=== PATIENT | female | born 1955 | race Caucasian/White ===

== ENCOUNTER → 2016-10-07 | Outpatient (CLI) | payer BC ==
[~2016-10-07] MED LIST: AMLO-110 PO; CALC600T9 PO; CHOL1000 PO; LOSA1TAB PO; OMEG10007 PO; OMEP40CA PO
--- NOTE | 2016-10-07 13:58 | MAMMOGRAPHY REPORT ---
BILATERAL DIGITAL SCREENING MAMMOGRAM TOMOSYNTHESIS WITH CAD: 10/07/2016 CLINICAL HISTORY: Routine screening. Patient has no complaints. TECHNIQUE: Breast tomosynthesis in addition to standard 2D mammography was performed. Current study was also evaluated with a Computer Aided Detection (CAD) system. COMPARISON: Comparison is made to exams dated: 10/05/2015 mammogram, 10/02/2013 mammogram, 10/15/2014 m ammogram, 10/07/2014 mammogram, 10/03/2014 mammogram, and 09/26/2011 mammogram - [facility]. BREAST COMPOSITION: The tissue of both breasts is heterogeneously dense, which may obscure small ma sses. FINDINGS: No suspicious masses, calcifications, or areas of architectural distortion are noted in e ither breast. There has been no significant interval change compared to prior exams. There is stabl e architectural distortion within the right medial breast, likely representing post surgical changes from prior lumpectomy. Bilateral benign-appearing calcifications are not significantly changed. IMPRESSION: ACR BI-RADS CATEGORY 2: BENIGN There is no mammographic evidence of malignancy. A 1 year screening mammogram is recommended. The p atient will receive written notification of the results. Approximately 10% of breast cancers are not detected with mammography. A negative mammographic repor t should not delay biopsy if a clinically suggestive mass is present. Kelli Knight M.D. /:10/07/2016 13:29:06 Odd Shoe Examiner: Molly DERAS)(M), [facility] letter sent: Normal 1/2 BI-RADS Code: ACR BI-RADS Category 2: Benign
== END | disposition home or self-care (01) ==
LOC: C.MAMM 09:51
PROVIDERS: ATTEND Obstetrics & Gynecology
DX: Z12.31 Encounter for screening mammogram for malignant neoplasm of breast (principal); Z08 Encounter for follow-up examination after completed treatment for malignant neoplasm; Z85.3 Personal history of malignant neoplasm of breast

== ENCOUNTER → 2017-10-10 | Outpatient (CLI) | payer OTHER ==
--- NOTE | 2017-10-11 15:53 | MAMMOGRAPHY REPORT ---
BILATERAL DIGITAL SCREENING MAMMOGRAM TOMOSYNTHESIS WITH CAD: 10/10/2017 CLINICAL HISTORY: Asymptomatic. Personal history of right breast cancer. Fibroadenoma excision from the left breast. TECHNIQUE: Breast tomosynthesis in addition to standard 2D mammography was performed. Current study was also evaluated with a Computer Aided Detection (CAD) system. COMPARISON: Comparison is made to exams dated: 10/07/2016 mammogram, 10/05/2015 mammogram, 10/07/2014 m ammogram, 10/03/2014 mammogram, 10/02/2013 mammogram, and 10/01/2012 mammogram - [facility]. BREAST COMPOSITION: The tissue of both breasts is heterogeneously dense, which may obscure small mas ses. FINDINGS: Linear scar markers overlie each breast. The right scar marker overlies the upper outer p osterior breast, and the left scar marker overlies the lower outer middle to anterior breast. There is no obvious architectural distortion in the left breast in the area of prior fibroadenoma excision in the 5:00 axis. There are stable groupings of punctate macro calcifications in the superior left b reast. No new suspicious masses, suspicious calcifications, asymmetries or areas of architectural di stortion are seen in the left breast. There is a focal area of architectural distortion in the lower inner quadrant of the right breast. T here is no overlying scar marker to definitively denoting the lumpectomy bed and based on prior avail able records, review of mammogram reports dating back to 1997 do not describe the location of the lum pectomy bed. Therefore, additional spot compression tomosynthesis views of the right lower inner kristen drant after placement of any additional scar markers is recommended, with possible ultrasound. There are possible grouped calcifications in the upper outer posterior right breast for which additional s pot magnification views are recommended. No other suspicious mass, architectural distortion or cluster of microcalcifications is seen. IMPRESSION: ACR BI-RADS CATEGORY 0: INCOMPLETE EVALUATION: NEED ADDITIONAL IMAGING EVALUATION 1. The focal architectural distortion in the lower inner right breast and microcalcifications in the upper outer posterior right breast need additional imaging evaluation. Please see above discussion. The patient will be called to schedule an appointment. Approximately 10% of breast cancers are not detected with mammography. A negative mammographic report should not delay biopsy if a clinically suggestive mass is present. Candace Jaquez M.D. ay/:10/10/2017 16:10:58 Petrographer: Lara Doyle RT(R)(M), [facility] letter sent: Addl Imaging 0 BI-RADS Code: ACR BI-RADS Category 0: Incomplete Evaluation: Need Additional Imaging Evaluation
== END | disposition home or self-care (01) ==
LOC: C.MAMM 10:09
PROVIDERS: ATTEND Obstetrics & Gynecology
DX: Z12.31 Encounter for screening mammogram for malignant neoplasm of breast (principal); Z85.3 Personal history of malignant neoplasm of breast; N64.89 Other specified disorders of breast; R92.0 Mammographic microcalcification found on diagnostic imaging of breast

== ENCOUNTER → 2017-10-18 | Outpatient (CLI) | payer OTHER ==
--- NOTE | 2017-10-19 08:04 | MAMMOGRAPHY REPORT ---
UNILATERAL RIGHT DIGITAL DIAGNOSTIC MAMMOGRAM TOMOSYNTHESIS AND TARGETED RIGHT ULTRASOUND: 10/18/2017 CLINICAL HISTORY: 61-year-old woman with a remote history of right breast cancer approximately 20 yea rs ago, with skin surgical scar in the upper outer quadrant near the axilla. Also recent left breast excisional biopsy performed in 2014, which yielded benign pathology results. She was called back fr om most recent screen for right breast microcalcifications in the upper outer quadrant and possible a gigi of distortion in the lower inner right breast. TECHNIQUE: Spot magnification right CC, ML and spot compression tomosynthesis right CC and MLO views were obtained. COMPARISON: Comparison is made to exams dated: 10/10/2017 mammogram, 10/07/2016 mammogram, 10/05/2015 m ammogram, 10/03/2014 mammogram, 10/02/2013 mammogram, and 10/01/2012 mammogram - [facility] C [facility]. BREAST COMPOSITION: The tissue of the right breast is heterogeneously dense, which may obscure small masses. FINDINGS: The spot magnification views of the right upper outer breast demonstrate an 11 mm grouping of coarse heterogeneous calcifications. Although these calcifications could represent a benign dege nerating fibroadenoma, given the personal history of DCIS, definitive characterization with a stereot actic guided biopsy is recommended. The spot compression tomosynthesis views of the right lower inner breast demonstrate a subtle area of architectural distortion on cc tomosynthesis slice 15/56, and likely corresponding distortion on MLO tomosynthesis slice 25/60. Further characterization with ultrasound was performed. On visual inspection, no periareolar or lower inner quadrant skin scar is noted. Throughout the righ t lower inner quadrant also including the 2:00 and 7:00 axes as well as the retroareolar breast, no s uspicious solid or cystic masses identified. No sonographic correlate for the distortion seen mammog raphically. This area remains indeterminate and definitive characterization with a stereotactic allyssa synthesis guided biopsy is recommended. IMPRESSION: ACR BI-RADS CATEGORY 4: SUSPICIOUS, TARGETED ULTRASOUND ACR BI-RADS CATEGORY 4: SUSPICIO US 1. Stereotactic guided right breast biopsy is recommended for a grouping of coarse heterogeneous lian rocalcifications in the upper outer posterior right breast. 2. Stereotactic tomosynthesis guided biopsy is also recommended for a subtle focal area of ip network architect ural distortion in the lower inner middle one third of the right breast, located distal from the marlene ent's original surgical scar from her lumpectomy performed 20 years ago. These results and recommendations were discussed with the patient and her at the time of the exam. She tentatively scheduled the biopsies prior to leaving our department. Approximately 10% of breast cancers are not detected with mammography. A negative mammographic report should not delay biopsy if a clinically suggestive mass is present. Candace Jaquez M.D. ay/:10/18/2017 15:36:44 Applied Behavior Specialist: Lara CLARK(R)(M), [facility] letter sent: Abnormal 4/5 BI-RADS Code: ACR BI-RADS Category 4: Suspicious Ultrasound BI-RADS: ACR BI-RADS Category 4: Suspici ous
== END | disposition home or self-care (01) ==
LOC: C.MAMM 14:00
PROVIDERS: ATTEND Obstetrics & Gynecology
DX: N64.89 Other specified disorders of breast (principal); R92.0 Mammographic microcalcification found on diagnostic imaging of breast; Z85.3 Personal history of malignant neoplasm of breast

== ENCOUNTER → 2017-11-02 | Outpatient (CLI) | payer OTHER ==
--- NOTE | 2017-11-02 13:35 | Discharge Instructions ---
Discharge Instructions Procedure Procedure Date: Nov 02, 2017. Reason for visit: Right Distortion; Right Calcs. Discharge Discharge Date: Nov 02, 2017. Discharge Diagnosis: status post breast biopsy Instructions Activity Recommendations: Additional Limitations (see below) Return to School/Work: no limitations Recommended Home Diet: No Limitations Provider Instructions: ACTIVITY RECOMMENDATIONS: * No lifting, pushing, pulling or exercising the affected side for three days. RETURN TO SCHOOL/WORK: * You may return to work/school after the procedure, but do not perform any strenuous activities for 24 to 48 hours. MEDICATIONS: * Tylenol (two 325 mg) every four to six hours if needed for mild pain (if not allergic to Tylenol). DIET: * Resume previous diet. SPECIAL CARE INSTRUCTIONS: * Keep biopsy site dry for 24 hours. May shower after 24 hours, but do not soak (bathe) incision. * May remove Tegaderm (plastic patch) tomorrow AFTER showering. * Leave the steri-strips on for one week. Allow the steri-strips to fall off by themselves. If not off after one week, you may remove them. You may place a Bandaid crosswise over the strips, if desired. * Apply ice 10 minutes on and 10 minutes off as needed. * Wear a bra at bedtime to sleep more comfortably for 2-3 days. * Your referring physician should have the results after approximately 5 to 7 business days. * Call for unusual bleeding, fever, drainage, etc or if you have any questions call during normal business hours or after hours call Dr Knight, [phone]. FOLLOW UP VISIT: Follow-up with Referring Physician as scheduled. Allergies Coded Allergies: No Known Allergies (Unverified , 09/09/13) Olga Hurd Recommendations: Call your doctor if: * Temperature above 101 degrees * Pain not relieved by pain medicine ordered * There is increased drainage or redness from any incision * You have any unanswered questions or concerns. Your Doctors Instructions noted above were prepared by provider Kelli Knight. Patient Signature Section: Patient Instructions Signature Page Sruthi Cuevas Patient (or Guardian) Signature/Date: I have read and understand the instructions given to me by my caregivers. Caregiver/RN/Doctor Signature/Date: The above-named patient and/or guardian has received patient instructions on this date. + Original Patient Signature Page (only) stays with chart. Please make copy for patient.
--- NOTE | 2017-11-06 12:40 | MAMMOGRAPHY REPORT ---
STEREOTACTIC GUIDED BIOPSY RIGHT BREAST: 11/02/2017 CLINICAL HISTORY: Indeterminate calcifications in the right upper outer quadrant. Focal area of arch itectural distortion seen within the right lower inner quadrant. PATIENT CONSENT: The procedure, risks, benefits, and alternatives of stereotactic biopsy with clip pl acement were discussed with the patient, and verbal and written consent was obtained. A timeout was performed immediately prior to the procedure. PROCEDURE DESCRIPTION: First, the focal area of architectural distortion in the right lower inner quadrant was going to be t argeted for biopsy. The area could not be confidently visualized on public information director images, in either the caud ocranial or medial positions, as the breast could not be pulled down far enough into the hole in the table enough to include the finding on the images. Additionally, when reviewing the diagnostic mammo grams a calcified artery is seen coursing through the distortion, and the biopsy would likely not be able to be safely performed even if it was visualized due to the risk of injury to the artery and pos sible bleeding. Therefore, biopsy was not performed of the focal area of architectural distortion. With stereotactic guidance, aseptic technique, and lidocaine as a local anesthetic (1% lidocaine to a nesthetize the skin and 1% lidocaine with epinephrine to anesthetize the deeper tissues), the calcifi cations of concern in the right upper outer quadrant were sampled multiple times with a 9-gauge vacuu m-assisted biopsy needle (newMentor). The path of approach was lateral, with he placed down into t her arm hole in the table to obtain more posterior tissue. The specimen radiograph demonstrates calc ifications to be present in the samples. A metallic marker clip was placed at the biopsy site. This was confirmed on postprocedure mammograms. Direct pressure was applied at the biopsy site and hemos tasis was readily achieved. The patient tolerated the procedure without complication. She was given wound care instructions. COMPARISON: Comparison is made to exams dated: 10/18/2017 mammogram, 10/10/2017 mammogram, 10/07/2016 ma mmogram, 10/05/2015 mammogram, 10/07/2014 mammogram, and 10/03/2014 mammogram - [facility]ter. IMPRESSION: STEREOTACTIC GUIDED BIOPSY 1. Status post stereotactic biopsy of right upper outer quadrant calcifications, with clip placement . The patient will receive pathology results from her referring provider. 2. Stereotactic biopsy could not be performed of the focal area of architectural distortion in the r ight lower inner quadrant, as described above. The focal area of architectural distortion most likel y represents a radial scar although remains indeterminant. As stereotactic biopsy could not be perfo rmed, needle localization and surgical biopsy is recommended. Kelli Knight M.D. ah/:11/02/2017 15:13:59 Attending Technologist: Miguel A CLARK(R)(M), [facility] Youth Leader: Molly Cummins, [facility]
--- NOTE | 2017-11-06 12:44 | MAMMOGRAPHY REPORT ---
UNILATERAL RIGHT DIGITAL DIAGNOSTIC MAMMOGRAM: 11/02/2017 CLINICAL HISTORY: Status post right breast stereotactic biopsy. TECHNIQUE: Postprocedural right CC, LM, and XCCL views were obtained. COMPARISON: Comparison is made to exams dated: 10/18/2017 mammogram, 10/10/2017 mammogram, 10/07/2016 ma mmogram, 10/05/2015 mammogram, 10/07/2014 mammogram, and 10/03/2014 mammogram - [facility] nter. BREAST COMPOSITION: The tissue of the right breast is heterogeneously dense, which may obscure small masses. FINDINGS: A new biopsy marker clip is seen at the site of the biopsied calcifications in the right up per outer quadrant posteriorly. No significant postbiopsy hematoma is seen. IMPRESSION: POST PROCEDURE IMAGING FOR MARKER PLACEMENT New biopsy marker clip status post right breast stereotactic biopsy. Pathology results are pending. Approximately 10% of breast cancers are not detected with mammography. A negative mammographic report should not delay biopsy if a clinically suggestive mass is present. Kelli Knight M.D. ah/:11/02/2017 15:15:13 Wildlife Refuge Specialist: Molly Cummins, [facility] BI-RADS Code: Post Procedure Imaging For Marker Placement
== END | disposition home or self-care (01) ==
LOC: C.MAMM 12:17
PROVIDERS: ATTEND Obstetrics & Gynecology
DX: D05.11 Intraductal carcinoma in situ of right breast (principal)

== ENCOUNTER → 2017-11-15 | Outpatient (CLI) | payer OTHER ==
[~2017-11-15] MED LIST changes: +HYDR-5688 PO; +MULT-506 PO; +OMEP-334 PO
[2017-11-15 12:43] LABS: BASO % 0.1 %; BASO ABS # 0.01 K/uL (0-0.2); EOS % 1.5 %; EOS ABS # 0.11 K/uL (0-0.5); HEMATOCRIT 42.4 % (37-47); HEMOGLOBIN 14.2 g/dL (12.0-16.0); IG# 0.03 K/uL (0.00-0.02); LYMPH % 19.2 %; LYMPH ABS # 1.38 K/uL (1.2-3.4); MEAN CELL VOLUME 83.6 fL (80-100); MEAN CORPUSCULAR HGB CONC 33.5 g/dl (32-36); MEAN PLATELET VOLUME 10.1 fL (7.4-10.4); MONO % 8.3 %; NEUT % 70.5 %; NEUT ABS # 5.06 K/uL (1.4-6.5); PLATELET COUNT 211 K/uL (130-400); RED CELL DISTRIBUTION WIDTH CV 14.4 % (11.5-14.5); RED CELL DISTRIBUTION WIDTH SD 44.1 fL (36.4-46.3); WHITE BLOOD COUNT 7.19 K/uL (4.8-10.8)
[2017-11-15 12:54] LABS: BLOOD UREA NITROGEN 17 mg/dl (7-18); CALCIUM 9.6 mg/dl (8.5-10.1); CARBON DIOXIDE 29 mmol/L (21-32); CREATININE 0.73 mg/dl (0.60-1.20); GLUCOSE 92 mg/dl (70-99); POTASSIUM 4.1 mmol/L (3.5-5.1); SODIUM 140 mmol/L (136-145)
== END | disposition home or self-care (01) ==
LOC: C.CPL 10:59
PROVIDERS: ATTEND Surgery
DX: Z01.818 Encounter for other preprocedural examination (principal); D05.11 Intraductal carcinoma in situ of right breast

== ENCOUNTER → 2017-11-24 | Day surgery (SDC) | payer OTHER ==
[2017-11-16 09:29] VITALS: Ht 167.6 cm; Wt 70.5 kg
[~2017-11-24] VITALS: Ht 167.6 cm; Wt 70.5 kg
[~2017-11-24] MED LIST changes: +ATROPINE SULFATE 0.1 MG/ML 5ML SYR IV PRN; +CEFAZOLIN 2000MG IV PUSH 15 ML IV SCH; +DEXAMETHASONE SOD INJ 4 MG/ML VIAL ONE; +EpHEDrine SULFATE INJ 50 MG/ML AMP IV PRN; +FENTANYL CITRATE INJ 50 MCG/1 ML 2 ML VIAL IV PRN; +FENTANYL CITRATE INJ 50 MCG/1 ML 2 ML VIAL ONE; +FLUMAZENIL 0.1 MG/1 ML 10 ML VIAL IV PRN; +HYDROCODONE/ACETAMIN 5/325MG TAB PO PRN; +HYDROmorphone INJ 2 MG/ML SYR/VIAL IV PRN; +IBUPROFEN 600 MG TAB PO PRN; +LABETALOL HCL IV 5 MG/ML 20ML IV PRN; +LACTATED RINGER'S 1000ML 1,000 ML IV SCH; +LIDOCAINE HCL 2% 2 ML VIAL (20MG/ML) ONE; +LIDOCAINE/EPINEPHRINE 1% 20 ML VIAL ONE; +MEPERIDINE HCL 25 MG/ML CARP IV PRN; +MIDAZOLAM HCL 1 MG/ML 2ML VIAL ONE; +NALOXONE HCL 0.4 MG/1 ML VIAL/CARP IV PRN; -OMEP40CA PO; +ONDANSETRON INJ 2 MG/ML 2 ML VIAL IV PRN; +ONDANSETRON INJ 2 MG/ML 2 ML VIAL ONE; +PHENYLEPHRINE 100MCG/ML 5ML SYR IV PRN; +PROPOFOL IV EMULSION 10 MG/ML 20 ML VIAL IV ONE; +SODIUM CHLORIDE 0.9% 1000ML 1,000 ML IV SCH
--- NOTE | 2017-11-24 09:22 | History & Physical Bridge Note ---
H&P Re-Evaluation Bridge Note: I have examined the patient, reviewed the History & Physical and in the interval since the performance of the History & Physical I have noted the following changes of clinical significance: No changes noted
--- NOTE | 2017-11-24 09:58 | Discharge Instructions-SurgCtr ---
Discharge Instructions Date of Service Nov 24, 2017. Visit Reason for Visit: Right Breast Dcis Discharge Discharge Diagnosis / Problem: DCIS right breast Discharge Goals Goal(s): Learn about illness, Prevent Disease Progression Medications Stopped Medications Name(s): Fish oil stopped x 1 week 11-17-17 Activity Recommendations Activity Limitations: per Instructions/Follow-up section Lifting Limitations: no more than 10 pounds Exercise/Sports Limitations: until after follow-up appointment Shower/Bathe: tomorrow Anesthesia . Post Anesthesia Instructions: If you have had General Anesthesia or IV Sedation: * Do not drive today. * Resume driving when surgeon permits. * Do not make important decisions or sign legal documents today. * Call surgeon for: 1. Temperature elevations greater than 101 degrees F. 2. Uncontrollable pain. 3. Excessive bleeding. 4. Persistent nausea and vomiting. 5. Medication intolerance (nausea, vomiting or rash). * For nausea and vomiting use only clear liquids such as: tea, soda, bouillon until nausea subsides, then gradually increase diet as tolerated. * If you have any concerns or questions, call your surgeon's office. If physician is unavailable and it is an emergency, call 911 or go to the nearest emergency room. . Diet Recommendations Home Diet: resume previous diet Pending Studies Studies pending at discharge: yes List of pending studies: pathology reports Medical Emergencies . Who to Call and When: Medical Emergencies: If at any time you feel your situation is an emergency, please call 911 immediately. . Non-Emergent Contact Non-Emergency issues call your: Primary Care Provider, Surgeon Call Non-Emergent contact if: temperature is above 101, wound has increased drainage, wound has increased redness, wound has increased pain . . "Provider Documentation" section prepared by Shakir Sethi. .
--- NOTE | 2017-11-24 11:00 | [facility] Post Operative Brief Note ---
Immediate Operative Summary Operative Date Nov 24, 2017. 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 Sethi Bilingual Medical Assistant Surgeon(s) None Estimated Blood Loss 10 mL Findings Consistent with Post-Op Diagnosis Specimens A: Right breast biopsy medial lump ( out at 1028 ) 1 long stitch - lateral, 2 short stitch - superior, wire - inferior B: Right breast biopsy lateral lump ( out at 1042 ) wire - inferior, 2 short stitch - superior, 1 long stitch - posterior Anesthesia Type General
--- NOTE | 2017-11-24 11:22 | [facility] Operative Report ---
Operative Report Operative Date Nov 24, 2017. 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 Sethi Dinkey Engine Operator Surgeon(s) None Estimated Blood Loss 10 mL Specimens A: Right breast biopsy medial lump ( out at 1028 ) 1 long stitch - lateral, 2 short stitch - superior, wire - inferior B: Right breast biopsy lateral lump ( out at 1042 ) wire - inferior, 2 short stitch - superior, 1 long stitch - posterior Anesthesia Type General Description of Procedure Prior to arriving in the operating room the patient had been to the breast [place] where she had a right medial localization as well as a right lateral localization. Following this the patient was brought to the operating room and placed in supine position with the right arm extended. Successful placement of the laryngeal mask airways was obtained. The right upper chest and breast and axilla were all sterilely prepped and draped in usual fashion. I began with the medial most lesion. I made a curvilinear incision just superior to the entrance location of the guidewire. This was carried down through the soft tissue using electrocautery. The wire had previously been cut short and I was then able to deliver the wire into the wound itself. We used traction countertraction and electrocautery to come around the guidewire in 360. I carried this down to the fascia of the pectoralis muscle. I was able to remove the specimen in 1 piece including tissue just posterior to the wire itself. Once it was removed we did mary it such that 2 short sutures were superior one long suture was lateral and the guidewire was inferior. This was sent to radiology where they did verify that we had the specimen that we were going after. Any small bleeding points were controlled using electrocautery. Thorough irrigation of the wound was performed. There was adequate hemostasis. We closed the wound in multiple layers using 3-0 Vicryl for the deep layers and 4-0 Monocryl for the skin. Marcaine was injected around the incision for postoperative analgesia. Benzoin and Steri-Strips were used as a dressing. My attention then turned to the lateral breast lesion. I used the exact same technique. I made an incision just medial to the entrance of the guidewire and again created skin flaps with cautery. Again I was able to deliver the wire into the wound and came around and 360 down onto the pectoralis fascia. Once the lump was removed in its entirety I again marked it such that 2 short sutures were superior the guidewire was lateral and one long suture marked the posterior aspect. Again we sent it to radiology where they verified that we did in fact have the specimen. Again cautery was used to control any small bleeding points. Wound was thoroughly irrigated and closed with 3-0 Vicryl for deep layers 4-0 Monocryl for skin. Marcaine was injected around it benzoin and Steri-Strips were used as a dressing. The patient was then awakened extubated and transferred recovery in stable condition. I attest to the content of the Intraoperative Record and any orders documented therein. Any exceptions are noted below.
[2017-11-24 11:57] VITALS: BP 124/73; PULSE 99; TEMP 36.5; O2SAT 99
--- NOTE | 2017-11-24 12:01 | Anesthesia Progress Nt - [facility] ---
Anesthesia Post Op Note Date & Time Nov 24, 2017 at 12:01 Vital Signs Pain Intensity: 0 Vital Signs Past 12 Hours Date Time Temp Pulse Resp B/P (MAP) Pulse Ox O2 Delivery O2 Flow Rate FiO2 11/24/17 11:50 36.4 81 16 118/70 97 Room Air 11/24/17 11:47 86 8 11/24/17 11:47 90 8 93 11/24/17 11:45 128/74 11/24/17 11:42 94 19 98 11/24/17 11:42 92 19 11/24/17 11:40 122/73 11/24/17 11:37 95 16 11/24/17 11:37 96 16 93 11/24/17 11:35 127/77 11/24/17 11:32 88 14 11/24/17 11:32 88 14 99 11/24/17 11:30 123/70 11/24/17 11:27 89 20 99 11/24/17 11:27 88 20 11/24/17 11:25 131/73 11/24/17 11:22 93 15 11/24/17 11:22 92 15 97 11/24/17 11:20 131/72 11/24/17 11:17 92 15 11/24/17 11:17 91 15 99 11/24/17 11:15 129/74 11/24/17 11:12 99 14 98 11/24/17 11:12 97 14 11/24/17 11:11 89 14 99 11/24/17 11:11 89 14 11/24/17 11:10 129/69 11/24/17 11:07 144/78 11/24/17 11:06 36.4 100 14 144/78 98 Mask 11/24/17 08:32 36.7 84 16 129/83 (98) 98 Room Air Notes Mental Status: alert / awake / arousable, participated in evaluation Pt Amnestic to Procedure: Yes Nausea / Vomiting: adequately controlled Pain: adequately controlled Airway Patency, RR, SpO2: stable & adequate BP & HR: stable & adequate Hydration State: stable & adequate Anesthetic Complications: no major complications apparent
--- NOTE | 2017-11-27 07:43 | MAMMOGRAPHY REPORT ---
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 Also with an area of focal a rchitectural distortion in the right lower inner quadrant which was not amenable to stereotactic biop sy. PROCEDURE DESCRIPTION: With imaging guidance, aseptic technique, and 1% lidocaine as the local anesth etic, the biopsy marker clip and residual calcifications were localized with a 5 cm Marquez 2 needle. The path of approach was lateral. The biopsy marker clip and residual calcifications are located a long the distal portion of the wire just proximal to the adelaida, posterior to the wire. The needle was removed. The patient tolerated the procedure without complication. COMPARISON: Comparison is made to exams dated: 11/02/2017 mammogram, 11/02/2017 stereotactic biopsy, ultrasound, 10/18/2017 mammogram, 10/10/2017 mammogram, and 10/07/2016 mammogram - [facility]. IMPRESSION: NEEDLE LOCALIZATION Mammographic guided needle localization of the biopsy marker clip and residual calcifications in the right upper outer quadrant. Kelli Knight M.D. ah/:11/24/2017 11:08:13 Websphere Consultant: Molly Cummins, [facility]
--- NOTE | 2017-11-27 07:43 | MAMMOGRAPHY REPORT ---
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 Also with an area of focal a rchitectural distortion in the right lower inner quadrant which was not amenable to stereotactic biop sy. PROCEDURE DESCRIPTION: With tomosynthesis guidance, aseptic technique, and 1% lidocaine as the local anesthetic, an attempt was made to localize the focal architectural distortion in the right lower inn er quadrant using a 3 cm Marquez 2 needle with a caudocranial approach. However, as the wire was daly ng threaded through the needle, it became bent and kinked and did not advanced to the proper area. T herefore, the needle was left in place and repeat localization was performed using a 5 cm Marquez 2 n eedle. The path of approach for both needles was caudocranial. The subtle architectural distortion is located along the distal portion of the second wire, centered at the adelaida. The needle was removed . The patient tolerated the procedure without complication. Findings were discussed with Dr. Garcia on over the telephone. COMPARISON: Comparison is made to exams dated: 11/24/2017 specimen, 11/02/2017 mammogram, 11/02/2017 st ereotactic biopsy, 10/18/2017 ultrasound, 10/18/2017 mammogram, and 10/10/2017 mammogram - [facility]. IMPRESSION: NEEDLE LOCALIZATION Mammographic guided needle localization of the focal architectural distortion within the right lower inner quadrant. Kelli Knight M.D. /:11/24/2017 12:37:15 Taper Machine: Molly Cummins, [facility]
--- NOTE | 2017-11-27 07:43 | MAMMOGRAPHY REPORT ---
SPECIMEN RIGHT BREAST: 11/24/2017 CLINICAL HISTORY: Status post right breast surgical excision. COMPARISON: Comparison is made to exams dated: 11/24/2017 localization, 11/02/2017 mammogram, 8 stereotactic biopsy, 10/18/2017 ultrasound, and 10/18/2017 mammogram - [facility]. Findings: A radiograph was performed of the surgical specimen from the right lower inner quadrant. T he intact needle localization wire and mild density is present centrally within the specimen. Coarse benign-appearing calcifications which were seen in association with the distortion are seen centrall y within the specimen. The additional wire placed at the time of localization is also seen at the ed ge of the specimen. Results were discussed with Dr. Sethi. IMPRESSION: SPECIMEN The imaged specimen contains the preoperatively localized abnormality. Kelli Knight M.D. /:11/24/2017 11:51:13 Mortgage Lender: Molly Cummins, [facility]
--- NOTE | 2017-11-27 07:43 | MAMMOGRAPHY REPORT ---
SPECIMEN RIGHT BREAST: 11/24/2017 CLINICAL HISTORY: Status post right breast surgical excision. COMPARISON: Comparison is made to exams dated: 11/24/2017 localization, 11/02/2017 mammogram, 8 stereotactic biopsy, 10/18/2017 ultrasound, and 10/18/2017 mammogram - [facility]. Findings: A radiograph was performed of the right upper outer breast surgical specimen. The localized biopsy marker clip and residual calcifications as well as the intact needle localization wire are pr esent centrally within the specimen. Results were discussed with Dr. Sethi over the telephone. IMPRESSION: SPECIMEN The imaged specimen contains the preoperatively-localized biopsy marker clip and residual calcificati ons. Kelli Knight M.D. ah/:11/24/2017 11:45:28 Chart Clerk: Molly Cummins, [facility]
== END | disposition home or self-care (01) ==
LOC: X.SURG 08:25
PROVIDERS: ATTEND Surgery
DX: D05.11 Intraductal carcinoma in situ of right breast (principal); I10 Essential (primary) hypertension; K21.9 Gastro-esophageal reflux disease without esophagitis; Z85.3 Personal history of malignant neoplasm of breast; Z85.820 Personal history of malignant melanoma of skin; Z98.51 Tubal ligation status; Z90.79 Acquired absence of other genital organ(s); Z90.721 Acquired absence of ovaries, unilateral; Z79.899 Other long term (current) drug therapy; Z88.2 Allergy status to sulfonamides; Z91.048 Other nonmedicinal substance allergy status

== ENCOUNTER 2017-12-21 06:54 | Day surgery (SDC) | payer OTHER ==
[2017-12-07 08:52] VITALS: BMI 25.0
[~2017-12-21] VITALS: Ht 167.6 cm; Wt 70.5 kg
[~2017-12-21 06:54] MED LIST changes: -AMLO-110 PO; -ATROPINE SULFATE 0.1 MG/ML 5ML SYR IV PRN; -DEXAMETHASONE SOD INJ 4 MG/ML VIAL ONE; -EpHEDrine SULFATE INJ 50 MG/ML AMP IV PRN; -FENTANYL CITRATE INJ 50 MCG/1 ML 2 ML VIAL IV PRN; -FENTANYL CITRATE INJ 50 MCG/1 ML 2 ML VIAL ONE; -FLUMAZENIL 0.1 MG/1 ML 10 ML VIAL IV PRN; -HYDR-5688 PO; -HYDROCODONE/ACETAMIN 5/325MG TAB PO PRN; -HYDROmorphone INJ 2 MG/ML SYR/VIAL IV PRN; -IBUPROFEN 600 MG TAB PO PRN; -LABETALOL HCL IV 5 MG/ML 20ML IV PRN; -LIDOCAINE HCL 2% 2 ML VIAL (20MG/ML) ONE; -LIDOCAINE/EPINEPHRINE 1% 20 ML VIAL ONE; -MEPERIDINE HCL 25 MG/ML CARP IV PRN; -MIDAZOLAM HCL 1 MG/ML 2ML VIAL ONE; -NALOXONE HCL 0.4 MG/1 ML VIAL/CARP IV PRN; -ONDANSETRON INJ 2 MG/ML 2 ML VIAL IV PRN; -ONDANSETRON INJ 2 MG/ML 2 ML VIAL ONE; -PHENYLEPHRINE 100MCG/ML 5ML SYR IV PRN; -PROPOFOL IV EMULSION 10 MG/ML 20 ML VIAL IV ONE; -SODIUM CHLORIDE 0.9% 1000ML 1,000 ML IV SCH
[2017-12-21 07:15] VITALS: BP 125/90; PULSE 86; TEMP 37.1; O2SAT 99; Ht 167.6 cm; Wt 70.5 kg
[2017-12-21] MEDS ORDERED: AMLO-110 PO (07:16)
[2017-12-21] MEDS ORDERED: PHENYLEPHRINE 100MCG/ML 5ML SYR IV PRN (08:00)
[2017-12-21] MEDS ORDERED: EpHEDrine SULFATE INJ 50 MG/ML AMP IV PRN (08:00)
[2017-12-21] MEDS ORDERED: ONDANSETRON INJ 2 MG/ML 2 ML VIAL IV PRN ×2 (08:00→11:45)
[2017-12-21] MEDS ORDERED: ATROPINE SULFATE 0.1 MG/ML 5ML SYR IV PRN (08:00)
[2017-12-21] MEDS ORDERED: HYDROmorphone INJ 2 MG/ML SYR/VIAL IV PRN (08:00)
--- NOTE | 2017-12-21 08:22 | DIAGNOSTIC IMAGING REPORT ---
LYMPHOSCINTIGRAPHY CLINICAL HISTORY: Right breast cancer. PROCEDURE: Using standard sterile technique, 4 intradermal and one deep injection of 0.55 mCi of Lymphoseek was placed in the right breast. The patient tolerated the procedure well. There were no immediate complications. The patient was subsequently transported to the surgical suite. No imaging was obtained at the referring physician's request. IMPRESSION: Injection of 0.55 mCi of Lymphoseek in the right breast. Electronically signed by: Primo Youssef M.D. 12/21/2017 8:21 AM Dictated Date/Time: 12/21/2017 8:20 AM
[2017-12-21] MEDS ORDERED: PROPOFOL IV EMULSION 10 MG/ML 20 ML VIAL ONE (09:47)
[2017-12-21] MEDS ORDERED: LIDOCAINE HCL 2% 2 ML VIAL (20MG/ML) ONE (09:47)
[2017-12-21] MEDS ORDERED: DEXAMETHASONE SOD INJ 4 MG/ML VIAL ONE (09:47)
[2017-12-21] MEDS ORDERED: ONDANSETRON INJ 2 MG/ML 2 ML VIAL ONE (09:47)
[2017-12-21] MEDS ORDERED: MIDAZOLAM HCL 1 MG/ML 2ML VIAL ONE (09:48)
[2017-12-21] MEDS ORDERED: FENTANYL CITRATE INJ 50 MCG/1 ML 2 ML VIAL ONE (09:48)
[2017-12-21] MEDS ORDERED: BUPIVACAINE 0.5 % 5 MG/1 ML MPF 30ML VIAL ONE (09:52)
[2017-12-21] MEDS ORDERED: HYDR-5688 PO (10:05)
--- NOTE | 2017-12-21 10:08 | Discharge Instructions ---
Discharge Instructions Date of Service December 21, 2017. Admission Reason for Admission: Right Breast Ductal Carcinoma In Situ W/Nm Inj Discharge Discharge Diagnosis / Problem: Right Breast Ductal Carcinoma In Situ W/ Nm Inj Discharge Goals Goal(s): Decrease discomfort, Improve function Activity Recommendations Activity Limitations: as noted below Lifting Limitations: no more than 10 pounds Exercise/Sports Limitations: until after follow-up appointment May Resume Sexual Activity: after follow-up appointment Shower/Bathe: tomorrow Driving or Machine Use: resume 1 day after discharge . Instructions / Follow-Up Instructions / Follow-Up You may shower tomorrow, please do not soak or scrub your incisions. Please follow-up with Dr. Sethi in the General Surgery Clinic in 1-2 weeks. Please call the office to schedule an appointment if you do not have one already. Please call the office with any questions or concerns. Current Hospital Diet Patient's current hospital diet: Discharge Diet Recommended Diet: Regular Diet Procedures Procedures Performed: Pathology report. Pending Studies Studies pending at discharge: yes List of pending studies: Pathology report. Medical Emergencies . Who to Call and When: Medical Emergencies: If at any time you feel your situation is an emergency, please call 911 immediately. . Non-Emergent Contact Non-Emergency issues call your: Primary Care Provider, Surgeon Call Non-Emergent contact if: temperature is above 101.5, your pain is not controlled, wound has increased drainage, wound has increased redness . "Provider Documentation" section prepared by Brittney Stephens. .
[2017-12-21] MEDS ORDERED: PHENYLEPHRINE HCL INJ 10 MG/ML VIAL ONE (10:10)
[2017-12-21] MEDS ORDERED: METHYLENE BLUE 0.5% 10 ML VIAL ONE (10:15)
[2017-12-21] MEDS ORDERED: EpHEDrine SULFATE INJ 50 MG/ML AMP ONE (10:39)
[2017-12-21] MEDS ORDERED: SODIUM CHLORIDE 0.9% INJ 10 ML VIAL ONE (10:39)
[2017-12-21] MEDS ORDERED: ARISTA ABSORBABLE HEMOSTAT 3GM TOP ONE (10:48)
[2017-12-21] MEDS ORDERED: EpINEphrine INJ 1MG/ML AMP 1 MG/ML AMP INJ ONE (10:49)
--- NOTE | 2017-12-21 11:11 | [facility] Post Operative Brief Note ---
Immediate Operative Summary Operative Date December 21, 2017. Pre-Operative Diagnosis Breast Cancer and DCIS Post-Operative Diagnosis Breast Cancer and DCIS Procedure(s) Performed Pathology report. Surgeon Dr Sethi Rice Drier Surgeon(s) N/A Estimated Blood Loss 10cc Findings Consistent with Post-Op Diagnosis Specimens As Per Surgeon A. Anterior margin of previous DCIS B. Sentinal Lymph Node #1 C. Sentinal Lypmh Node #2 Anesthesia Type General Complication(s) none
[2017-12-21] MEDS ORDERED: SODIUM CHLORIDE 0.9% 1000ML 1,000 ML IV SCH (11:32)
[2017-12-21] MEDS ORDERED: HYDROCODONE/ACETAMIN 5/325MG TAB PO PRN ×2 (11:45)
[2017-12-21] MEDS ORDERED: IBUPROFEN 600 MG TAB PO PRN (11:45)
[2017-12-21 12:00] VITALS: BP 120/73; PULSE 88; TEMP 36.4; O2SAT 94
[2017-12-21 12:30] VITALS: BP 126/78; PULSE 86; O2SAT 94
--- NOTE | 2017-12-21 12:51 | [facility] Operative Report ---
Operative Report Operative Date December 21, 2017. Pre-Operative Diagnosis Breast Cancer and DCIS Post-Operative Diagnosis Breast Cancer and DCIS Procedure(s) Performed Re-excision of Right Breast Ductal Carcinoma in Situ and Right Axillary [place] Lymph Node Biopsy Surgeon Dr Sethi Lumpia Wrapper Maker Surgeon(s) N/A Estimated Blood Loss 10cc Specimens As Per Surgeon A. Anterior margin of previous DCIS B. Sentinal Lymph Node #1 C. Sentinal Lypmh Node #2 Anesthesia Type General Complication(s) none Description of Procedure Prior to coming to the operating room the patient had been to nuclear medicine where she was injected in the bharat-areolar region with technetium isotope. She was then brought to the operating room and placed in supine position. After placement of the laryngeal mask airway the right arm was extended and the breast and axilla were sterilely prepped and draped in usual fashion. Initially we had trouble identifying any "hot nodes". We therefore injected around the area to be excised with approximately 3 cc of isosulfan blue and massaged this into the breast tissue. Because of difficulty isolating the node we began with the reexcision of a positive DCIS margin on the medial part of the breast. I made an ellipse around the previous incision with a 15 blade scalpel and carried this down through the soft tissue using electrocautery. I excised the skin as well as the anterior portion of the previous biopsy cavity as the anterior margin is where the positive DCIS had been seen. Once I removed the anterior portion of the previous biopsy cavity and then thoroughly irrigated the wound. I controlled any bleeding points using electrocautery. I placed Beau powder into the raw surfaces to help prevent seroma and hematoma formation. I then closed the wound in multiple layers using 3-0 Vicryl for deeper layers and 4-0 Monocryl for skin. Marcaine was injected around for postoperative analgesia. Benzoin and Steri-Strips were used as a dressing. Eventually I was able to identify with the neoprobe device and area of isotope uptake. I used a new 15 blade scalpel and made an incision over this area and carried it down through the soft tissue using electrocautery. I then opened the axillary fascia and eventually was able to identify some blue lymphatics and followed these distally. Between the blue lymphatics as well as the neoprobe device I was able to isolate a "hot" node. When I remove this from the body cavity it still showed that it was in fact 1 of the sentinel nodes. This was sent off a sentinel node #1. I was able to find a second sentinel node with the neoprobe although it had no blue uptake. I removed it the same fashion using electrocautery and tying off the pedicle with 3-0 Vicryl. Once these were passed off there was very minimal background noise and I was unable to find a third node with isotope uptake. There was no further evidence of any blue lymphatics either. I thoroughly irrigated the wound. I placed Beau into this wound cavity as well and then closed also using 3-0 Vicryl for deep layers and 4-0 Monocryl for skin. Marcaine was injected around it and benzoin and Steri-Strips use as a dressing. The patient was then awakened extubated and transferred to recovery in stable condition. I attest to the content of the Intraoperative Record and any orders documented therein. Any exceptions are noted below.
[2017-12-21 13:05] VITALS: BP 118/72; PULSE 92; TEMP 37; O2SAT 95
--- NOTE | 2017-12-21 13:46 | Anesthesiology Progress Note ---
Anesthesia Post Op Note Date & Time December 21, 2017 at 13:46 Vital Signs Pain Intensity: 3 Vital Signs Past 12 Hours Date Time Temp Pulse Resp B/P (MAP) Pulse Ox O2 Delivery O2 Flow Rate FiO2 12/21/17 13:05 37 92 16 118/72 95 Room Air 12/21/17 12:30 86 18 126/78 94 Room Air 12/21/17 12:00 36.4 88 18 120/73 94 Room Air 12/21/17 11:55 36.4 75 16 127/78 93 Room Air 12/21/17 11:45 77 14 132/74 96 Room Air 12/21/17 11:35 84 14 125/77 100 Oxymask 5 12/21/17 11:25 68 12 105/66 100 Oxymask 5 12/21/17 11:19 36.0 90 12 125/75 100 Oxymask 5 12/21/17 07:15 37.1 86 18 125/90 (102) 99 Room Air Notes Mental Status: alert / awake / arousable, participated in evaluation Pt Amnestic to Procedure: Yes Nausea / Vomiting: adequately controlled Pain: adequately controlled Airway Patency, RR, SpO2: stable & adequate BP & HR: stable & adequate Hydration State: stable & adequate Anesthetic Complications: no major complications apparent
== END 2017-12-21 13:20 | disposition home or self-care (01) ==
LOC: C.ACU 06:54 → EDSTATUS 07:00 → C.ACU 13:20
PROVIDERS: ATTEND Surgery
DX: D05.11 Intraductal carcinoma in situ of right breast (principal); N60.91 Unspecified benign mammary dysplasia of right breast; I10 Essential (primary) hypertension; Z88.2 Allergy status to sulfonamides; Z88.8 Allergy status to other drugs, medicaments and biological substances; Z98.890 Other specified postprocedural states; Z98.51 Tubal ligation status; Z98.818 Other dental procedure status; Z80.3 Family history of malignant neoplasm of breast; Z79.899 Other long term (current) drug therapy